=== PATIENT | male | born 1960 | race Caucasian/White ===

== ENCOUNTER → 2020-03-05 | Outpatient (CLI) | payer OTHER | LOC: COL.RAD 12:32 | DX: M48.02 Spinal stenosis, cervical region (principal); M47.12 Other spondylosis with myelopathy, cervical region; M47.22 Other spondylosis with radiculopathy, cervical region | CPT/HCPCS: A9585 ==

== ENCOUNTER → 2020-11-11 | Outpatient (CLI) | payer OTHER | LOC: MHCPAIN 12:28 | DX: M47.817 Spondylosis without myelopathy or radiculopathy, lumbosacral region (principal); M54.5 Low back pain; M53.3 Sacrococcygeal disorders, not elsewhere classified; G89.29 Other chronic pain | CPT/HCPCS: G0463 ==

== ENCOUNTER → 2020-11-16 | Outpatient (CLI) | payer OTHER | LOC: MHCPAIN 11-04 12:23 | DX: M47.816 Spondylosis without myelopathy or radiculopathy, lumbar region (principal); M54.5 Low back pain; M53.3 Sacrococcygeal disorders, not elsewhere classified | CPT/HCPCS: J1100; Q9967 ==

== ENCOUNTER → 2020-12-01 | Outpatient (CLI) | payer OTHER | LOC: MHCPAIN 12:26 | DX: M47.817 Spondylosis without myelopathy or radiculopathy, lumbosacral region (principal); M54.16 Radiculopathy, lumbar region; M53.3 Sacrococcygeal disorders, not elsewhere classified | CPT/HCPCS: G0463 ==

== ENCOUNTER → 2020-12-03 | Outpatient (CLI) | payer OTHER | LOC: MHCPAIN 09:59 | DX: M47.816 Spondylosis without myelopathy or radiculopathy, lumbar region (principal); M54.16 Radiculopathy, lumbar region; M53.3 Sacrococcygeal disorders, not elsewhere classified | CPT/HCPCS: J1100; Q9967 ==

== ENCOUNTER → 2020-12-16 | Outpatient (CLI) | payer OTHER | LOC: MHCPAIN 12:19 | DX: M47.817 Spondylosis without myelopathy or radiculopathy, lumbosacral region (principal); M54.16 Radiculopathy, lumbar region; M53.3 Sacrococcygeal disorders, not elsewhere classified | CPT/HCPCS: G0463 ==

== ENCOUNTER → 2021-01-07 | Outpatient (CLI) | payer OTHER | LOC: MHCPAIN 12:26 | DX: M47.816 Spondylosis without myelopathy or radiculopathy, lumbar region (principal); M54.5 Low back pain; M53.3 Sacrococcygeal disorders, not elsewhere classified | CPT/HCPCS: J1100; Q9967 ==

== ENCOUNTER → 2021-01-26 | Outpatient (CLI) | payer OTHER | LOC: MHCPAIN 12:28 | DX: M47.817 Spondylosis without myelopathy or radiculopathy, lumbosacral region (principal); M54.5 Low back pain; M53.3 Sacrococcygeal disorders, not elsewhere classified | CPT/HCPCS: G0463 ==

== ENCOUNTER 2024-01-11 15:00 | Outpatient (RCR) | payer OTHER ==
[~2024-01-11 15:00] MED LIST: ASPIRIN E.C. 8181 MG PO; FISH OIL1000 MG PO; FLOMAX 0.40.4 MG/CAP PO; LIORESAL 1010 MG/TAB PO; LIPITOR 40MG TA40 MG PO; MICROZIDE12.5 MG PO; MULTIPLE VITAMI1 TA5 PO; PRINIVIL20 MG PO; VITAMIN C500 MG PO
== END 2024-01-27 | disposition home or self-care (01) ==
LOC: WSPT
DX: C10.0 Malignant neoplasm of vallecula (principal)

== ENCOUNTER 2024-02-21 15:00 | Outpatient (RCR) | payer OTHER | END 2024-02-26 | disposition home or self-care (01) | LOC: WSPT | DX: C10.0 Malignant neoplasm of vallecula (principal) ==